=== PATIENT | female | born 1950 | race Asian ===

== ENCOUNTER → 2016-10-22 | Outpatient (CLI) | payer MEDICARE, BC ==
--- NOTE | ~2016-10-22 | MY11 ---
[facility] A Service of [facility] RADIOLOGY TEXT RESULTS PATIENT: AKIKO MARSH LOCATION: [facility] : 48 UNIT #: [id number] AGE: [address]: Anne Marsh MD SEX: F ORDER DR: [id number] [facility] [address] [place], [place] [address] [id number] O MR#: [id number] Acc #: [id number] NAME: AKIKO MARSH : 1950 SEX: F STUDY DATE/TIME: 10/22/2016 15:33 UNIT: [facility] ROOM: STUDY DESCRIPTION: MY Mammogram Screening Dig [facility] Attending Physician: Anne Marsh M.D. Referring Physician: Anne Marsh M.D. Ordering Physician: Anne Marsh M.D. Primary Care Physician: Anne Marsh M.D. MEDICAL IMAGING REPORT This report is preliminary unless electronic signature is present EXAM Screening mammogram, 10/22/16 HISTORY A 65-year-old, no personal or family history of breast cancer. No current complaints. FINDINGS Routine digital screening views of both breasts were obtained. The study is reviewed with an FDA approved CAD device. COMPARISON STUDIES Prior study from [facility] dated 09/01/13. FINDINGS The breast parenchyma shows scattered fibroglandular densities. No masses or suspicious microcalcifications are seen. IMPRESSION Negative mammogram. Routine screening in 1 year is recommended. Patients over the age of 40 are entered into a reminder system with target due date for the next mammogram. A result letter will also be sent to the patient. BIRADS: 1 Negative Dictated by... Milton Mirza Jr., M.D. [facility] A Service [facility] RADIOLOGY TEXT RESULTS PATIENT: AKIKO MARSH LOCATION: [facility] : 48 UNIT #: [id number] AGE: [address]: Anne Marsh MD SEX: F ORDER DR: THIS IS AN ELECTRONICALLY VERIFIED REPORT Milton Mirza Jr., M.D. at 10/23/2016 4:48 PM LEIGHTON/katya TD: 10/23/2016 12:04 JOB #: [id number] MEDICAL IMAGING REPORT Page 1 of 1 COPY
== END | disposition home or self-care (01) ==
LOC: CWCC 15:25
DX: Z12.31 Encounter for screening mammogram for malignant neoplasm of breast (principal)
CPT/HCPCS: G0202